=== PATIENT | female | born 1995 | race Caucasian/White ===

== ENCOUNTER 2017-08-05 13:26 | Emergency (ER) | payer BC ==
[2017-08-05 13:30] VITALS: BP 121/76; BMI 18.5
[2017-08-05] MEDS ORDERED: XYLOCAINE 1 % (PLAIN) ONE (16:12)
--- NOTE | 2017-08-05 16:25 | DR.GENAD ---
HPI - PCP Primary Care Physician: DEMETRIS - HPI Comment HPI Comment: HISTORY ABOVE. TD UTD. - Complaint/Symptoms Chief Complaint Doctors Comments: SPLINTER UNDER LT MIDDLE FINGER THAT IS NOT COMING OUT. HAPPEN TODAY. Chief Complaint:: SPLINTER UNDER LEFT MIDDLE FINGERNAIL - Nurses notes reviewed Nurses Notes Review: Yes - Source History Provided: Patient - Mode of Arrival Mode of Arrival: Ambulatory - Timing Onset of Chief Complaint: 08/05/17 Came on: Suddenly - Duration Duration: Since Onset Duration: Hours - Severity Severity: Moderate PMH - PMH Past Medical History: No Past Surgical History: No - Family History History of Family Medical Conditions: No - Social History Does patient currently use any type of tobacco product: No Have you used tobacco products in the last 12 months: No Type of Tobacco Use: None Does any household member use tobacco: No Alcohol Use: None Do you use any recreational Drugs:: No Lives With: Family Lives Where: Home - infectious screening In the last 2 months have you had wt loss of >10#?: NO Have you had fever, night sweats or hemotysis?: No Have you traveled outside the country in the last 6 months?: No Isolation: Standard ROS - Review of Systems Constitutional: No Symptoms Reported Eyes: No Symptoms Reported ENTM: No Symptoms Reported Respiratoy: No Symptoms Reported Cardiovascular: No Symptoms Reported Gastrointestinal/Abdominal: No Symptoms Reported Genitourinary: No Symptoms Reported Neurological: No Symptoms Reported Musculoskeletal: Left, Hand (SPLINTER IN NAIL OF LT MIDDLE FINGER.) Integumentary: Other (SPLINTER UNDER LT MIDDLE FINGER.) Hematologic/Lymphatic: No Symptoms Reported Endocrine: No Symptoms Reported All Other Systems: Reviewed and Negative PE - Vital Signs Vitals: Temperature 97.7 F Pulse Rate 81 Respiratory Rate 20 Blood Pressure 121/76 O2 Sat by Pulse Oximetry 99 - General Limitations: No Limitations General Appearance: Alert - Head Head Exam: Normal Inspection - Eyes Eye exam: Normal Appearance - ENT ENT Exam: Normal External Ear Exam External Ear Exam: Normal External Inspection Mouth Exam: Normal Inspection Throat Exam: Normal Inspection - Neck Neck Exam: Normal Inspection - Chest Chest Inspection: Symmetric Chest Wall Rise - Respiratory Respiratory Exam: Normal Lung Sounds Bilat Respiratory Exam: Bilateral Clear to Auscultation - Cardiovascular Cardiovascular Exam: Regular Rate, Normal Rhythm, Normal Heart Sounds - Abdominal Exam Abdominal Exam: Normal Inspection - Extremities Extremities Exam: Tenderness (NAIL LT MIDDLE FINGER WITH SPLINTER. TENDER.) - Back Back Exam: Normal Inspection - Neurologic Neurological Exam: Alert, Oriented X3 - Psychiatric Psychiatric Exam: Anxious - Skin Skin Exam: Erythema MDM - Additional Information Additional Information Obtained From: Family - Differential Diagnosis Differential Diagnosis: SPLINTER LT 3RD FINGER NAIL, PUNCTURE WOUND Course - Treatment Treatment: SEE ORDERS. - Education/Counseling Education/Counseling: Patient, Family, Education Educated On: Diagnosis, Needs for Follow Up Procedures - Procedure Comments Procedures: LEFT 3RD FINGER NUMB WITH LIDOCAINE. SPLINTER REMOVE UNDER NAIL 3RD FINGER. AREA IRREGATED WITH NS. - Diagnosis Discharge Problem: Puncture wound of left ring finger with FB and damage to nail Qualifiers: Encounter type: initial encounter Qualified Code(s): S61.345A - Puncture wound with foreign body of left ring finger with damage to nail, initial encounter - Discharge Plan Disposition: 01 HOME, SELF-CARE Condition: Stable Prescriptions: Cephalexin [KEFLEX SUSP 250 MG/5 ML *] 250 mg PO TID #150 ml - Follow ups/Referrals Follow ups/Referrals: JOSEPH WILLSON [Primary Care Provider] - 3 days - Instructions Instructions: Puncture Wound, [id number] Additional Instructions: RETURN TO ED IF WORSE.
[2017-08-05] MEDS ORDERED: BACITRACIN ZINC ONE (16:27)
== END 2017-08-05 17:19 | disposition home or self-care (01) ==
LOC: ER 13:36
PROC: 0HCGXZZ Extirpation of Matter from Left Hand Skin, External Approach (ICD-10-PCS; principal; 2017-08-05)
DX: S61.34 Puncture wound with foreign body of finger with damage to nail (principal); W45.8XXA Other foreign body or object entering through skin, initial encounter; Y92.9 Unspecified place or not applicable
CPT/HCPCS: 99282; J2001